=== PATIENT | male | born 1965 | race Two or more races ===

== ENCOUNTER → 2016-07-05 | Outpatient (CLI) | payer OTHER ==
[~2016-07-05] MED LIST: LIDOCAINE 1% 30 ML SDV ONE; NA BICARBONATE 50 MEQ/50 ML VIAL ONE
[2016-07-05 15:45] LABS: GLUCOSE, PERITONEAL FLUID 128 mg/dL (55-113); LD, PERITONEAL FLUID 294 IU/L
--- NOTE | 2016-07-05 15:48 | US ---
Ultrasound-Guided Paracentesis Indication: History of colon cancer. Ascites. Crosscutting Measure #226 : Current tobacco user No. Consent: After the risks, benefits and alternatives of ultrasound-guided paracentesis were explained to the patient and all questions were answered, witnessed informed consent was obtained. Procedure: A preprocedural ultrasound was performed to identify the largest pocket of ascites in the right lower quadrant. A timeout was performed. The skin was marked, prepped and draped in the usual s terile fashion, and numbed with 1% lidocaine with bicarbonate. A 5 [place] Yueh catheter was advanced under ultrasound guidance, using a sterile probe cover and sterile gel, into the ascites. The needle was removed and the catheter was left in place while 1550 mL of clear yellow ascites was removed. Th e catheter was removed at the end of the procedure, hemostasis achieved, and a sterile dressing appli ed. Postprocedure instructions were given. The patient tolerated the procedure well without immediate com plications. Impression: Ultrasound-guided paracentesis as above.
== END ==
LOC: FIMAGING 12:52
PROVIDERS: ATTEND Internal Medicine Hematology & Oncology
PROC: 0W9G3ZZ Drainage of Peritoneal Cavity, Percutaneous Approach (ICD-10-PCS; principal; 2016-07-05)
DX: R18.8 Other ascites (principal); C18.7 Malignant neoplasm of sigmoid colon